=== PATIENT | female | born 1985 | race Caucasian/White ===

== ENCOUNTER → 2018-12-17 | Emergency (ER) | payer OTHER ==
[~2018-12-17] VITALS: Ht 162.6 cm; Wt 72.0 kg
[~2018-12-17] MED LIST: TRAM50TA2 PO
[2018-12-17 16:46] VITALS: BP 137/96
== END | disposition home or self-care (01) ==
LOC: ER 16:39
DX: M79.672 Pain in left foot (principal); Z88.5 Allergy status to narcotic agent; Z88.8 Allergy status to other drugs, medicaments and biological substances; Z79.899 Other long term (current) drug therapy
CPT/HCPCS: 73630; 99283

== ENCOUNTER 2019-01-10 11:10 | Outpatient (CLI) | payer OTHER | END 2019-01-10 23:59 | disposition home or self-care (01) | LOC: RAD 11:10 | PROVIDERS: ATTEND Registered Nurse | DX: M21.6X2 Other acquired deformities of left foot (principal); R60.0 Localized edema | CPT/HCPCS: 73721 ==

== ENCOUNTER 2019-03-25 08:54 | Day surgery (SDC) | payer OTHER ==
[2019-03-21 14:00] LABS: BASOPHILS % (AUTO) 0.6 % (0-1); EOSINOPHILS # (AUTO) 0.1 X10'3 (0-0.9); EOSINOPHILS % (AUTO) 1.1 % (0-6); LYMPHOCYTES # (AUTO) 1.7 X10'3 (1.1-4.8); LYMPHOCYTES % (AUTO) 22.6 % (21-51); MEAN CORPUSCULAR HGB CONC 34.3 g/dL (33.0-36.5); MEAN CORPUSCULAR VOLUME 84.5 FL (78-98); MEAN PLATELET VOLUME 9.2 FL (7.4-10.4); MONOCYTES # (AUTO) 0.7 X10'3 (0-0.9); NEUTROPHILS # (AUTO) 5.1 X10'3 (1.8-7.7); NEUTROPHILS % (AUTO) 66.7 % (42-75); PRE OP HEMATOCRIT 40.6 % (35.0-45.0); PRE OP HEMOGLOBIN 13.9 g/dL (12.0-16.0); PRE OP PLATELET COUNT 254 X10'3 (140-440); RED BLOOD COUNT 4.81 X10'6 (4.20-5.60)
[2019-03-21 14:14] LABS: ALBUMIN 3.7 G/DL (3.4-5.0); ALKALINE PHOSPHATASE 80 IU/L (46-116); BLOOD UREA NITROGEN 11 MG/DL (7-18); BUN/CREATININE RATIO 17.2 (6.6-38.0); CHLORIDE 102 MMOL/L (99-107); CREATININE 0.64 MG/DL (0.40-0.90); PRE OP ALT 38 U/L (30-65); PRE OP ANION GAP 7 (8-16); PRE OP BILIRUB, TOTAL 0.3 MG/DL (0.0-1.0); PRE OP SODIUM 138 MMOL/L (135-145); TOTAL CARBON DIOXIDE 28.9 MMOL/L (24-32); TOTAL PROTEIN 7.4 G/DL (6.4-8.2); eGFR > 90 ML/MIN
[2019-03-21 14:15] LABS: PRE OP GLUCOSE 90 MG/DL (70-104); PRE OP POTASSIUM 3.9 MMOL/L (3.4-5.1)
[2019-03-21 14:25] LABS: PRE OP AST 23 U/L (10-37)
[~2019-03-25] VITALS: Ht 162.6 cm; Wt 72.0 kg
[2019-03-25] VITALS (7 sets, daily range): BP systolic 100–136; BP diastolic 56–88
[~2019-03-25 08:54] MED LIST changes: +IBUP200C5 PO; +MULT-1074 PO; -TRAM50TA2 PO
[2019-03-25] MEDS ORDERED: bacitracin 15gm ointment TP ONE ×2 (09:52→09:53)
[2019-03-25] MEDS ORDERED: BUPIVAcaine/PF 2.5 mg/ml (0.25%) 30ml vial ONE (09:53)
[2019-03-25] MEDS ORDERED: sevoflurane 250ml liquid IH ONE (10:34)
[2019-03-25] MEDS ORDERED: dexamethasone sod phosphate 10mg/ml inj ONE (10:34)
[2019-03-25] MEDS ORDERED: fentaNYL/PF 50MCG/1 ML 2ML syringe ONE (10:35)
[2019-03-25] MEDS ORDERED: midazolam 2 mg/2 ml injection ONE (10:35)
[2019-03-25] MEDS ORDERED: propofol inj 20 ML IV ONE (10:51)
[2019-03-25] MEDS ORDERED: LIDOcaine 2% (20mg/ml) 5ml vial ONE (10:51)
[2019-03-25] MEDS ORDERED: ondansetron/PF 4mg/2ml inj ONE (10:51)
[2019-03-25] MEDS ORDERED: ketorolac trometh. 30mg/ml inj. ONE (10:52)
[2019-03-25] MEDS ORDERED: ringers solution, lacted 1,000 ML IV SCH ×2 (11:07→11:30)
[2019-03-25] MEDS ORDERED: ondansetron/PF 4mg/2ml inj IV PRN (11:10)
[2019-03-25] MEDS ORDERED: morphine 4 MG/ML inj SYRINge IV PRN ×2 (11:10)
[2019-03-25] MEDS ORDERED: meperidine/PF 25mg/ml syringe IV PRN ×3 (11:10)
[2019-03-25] MEDS ORDERED: proCHLORperazine 10 MG/2 ml inj IV PRN (11:10)
[2019-03-25] MEDS ORDERED: famotidine 20mg tablet PO ONE (11:30)
[2019-03-25] MEDS ORDERED: cefazolin/dext.iso 2gm/100 ML IV ONE (11:30)
--- NOTE | 2019-03-25 11:35 | NUR ---
Received from OR via , accompanied by Anesthesiologist DR BYRD and report given by Anesthesiolgist. AWAKENS TO VOICE. VITALS STABLE. DRESSING DI. MALI PAIN. TOES WARM AND PINK.
--- NOTE | 2019-03-25 12:45 | NUR ---
AWAKE AND ORIENTED. VITALS STABLE. DRESSING DI. STATES PAIN IMPROVING. SURGICAL BOOT ON LLE. HOME WITH HER MOM AT THIS TIME.
== END 2019-03-25 12:45 | disposition home or self-care (01) ==
LOC: PAS 08:54
PROVIDERS: ATTEND Podiatrist Foot & Ankle Surgery
DX: M25.872 Other specified joint disorders, left ankle and foot (principal); D64.9 Anemia, unspecified; Z79.82 Long term (current) use of aspirin; Z79.899 Other long term (current) drug therapy; Z88.8 Allergy status to other drugs, medicaments and biological substances
CPT/HCPCS: 28315; 36415; 80053; 85025; A6223; J1100; J1885; J2001; J2175; J2250; J2405; J2704; J3010; J3490; A4215; A4618; A6449; A7000; J7120

== ENCOUNTER 2019-10-27 10:44 | Outpatient (CLI) | payer OTHER ==
[2019-10-27 11:45] LABS: CLARITY,URINE CLEAR (Clear); COLOR,URINE YELLOW (Yellow); GLUCOSE, URINE NEGATIVE (Neg); KETONES,URINE NEGATIVE (Neg); LEUKOCYTE ESTERASE ,URINE NEGATIVE (Neg); NITRITES, URINE NEGATIVE (Neg); OCCULT BLOOD,URINE NEGATIVE (Neg); PROTEIN,URINE NEGATIVE (Neg); UROBILINOGEN,URINE 0.2 E.U/dL (0.2-1.0)
[2019-10-27 11:46] LABS: BASOPHILS # (AUTO) 0.1 X10'3 (0-0.2); BASOPHILS % (AUTO) 1.6 % (0-1); EOSINOPHILS # (AUTO) 0.1 X10'3 (0-0.9); EOSINOPHILS % (AUTO) 1.4 % (0-6); HEMATOCRIT 41.8 % (35.0-45.0); HEMOGLOBIN 14.2 g/dl (12.0-16.0); LYMPHOCYTES # (AUTO) 1.4 X10'3 (1.1-4.8); LYMPHOCYTES % (AUTO) 29.2 % (21-51); MEAN CORPUSCULAR VOLUME 85.1 FL (78-98); MEAN PLATELET VOLUME 9.2 FL (7.4-10.4); MONOCYTES # (AUTO) 0.4 X10'3 (0-0.9); MONOCYTES % (AUTO) 7.3 % (2-12); NEUTROPHILS % (AUTO) 60.5 % (42-75); PLATELET COUNT 245 X10'3 (140-440); RED BLOOD COUNT 4.91 X10'6 (4.20-5.60); RED CELL DISTRIBUTION WIDTH 13.7 % (11.5-14.5); WHITE BLOOD COUNT 4.9 X10'3 (4.5-11.0)
[2019-10-27 11:46] LABS: UA COLLECTION TYPE CLN CATCH MIDSTREAM
[2019-10-27 12:13] LABS: ALANINE AMINOTRANSFERASE 51 U/L (12-78); ALBUMIN 3.9 G/DL (3.4-5.0); ALBUMIN/GLOBULIN RATIO 1.1 (1.1-1.5); ALKALINE PHOSPHATASE 88 IU/L (46-116); ANION GAP 4 (8-16); ASPARTATE AMINO TRANSFERASE 32 U/L (10-37); BILIRUBIN,TOTAL 0.3 MG/DL (0.1-1.0); BLOOD UREA NITROGEN 8 MG/DL (7-18); BUN/CREATININE RATIO 11.9 (6.6-38.0); CALCIUM 8.7 MG/DL (8.5-10.1); CHLORIDE 106 MMOL/L (99-107); CHOL/HDL RATIO 5.1 (0.00-4.99); CHOLESTEROL 273 MG/DL (0-200); CREATININE 0.67 MG/DL (0.40-0.90); GLUCOSE 86 MG/DL (70-104); HDL CHOLESTEROL 54 MG/DL (35-60); LDL CHOLESTEROL 103 MG/DL (50-100); POTASSIUM 4.1 MMOL/L (3.5-5.1); SODIUM 140 MMOL/L (135-145); TOTAL CARBON DIOXIDE 29.6 MMOL/L (24-32); TOTAL PROTEIN 7.6 G/DL (6.4-8.2); TRIGLYCERIDES 264 MG/DL (20-135); eGFR > 90 ML/MIN
[2019-10-27 12:18] LABS: % IRON SATURATION 16 % (11-46); IRON 56 UG/DL (49-151); TOTAL IRON BINDING CAPACITY 358 UG/DL (259-388)
[2019-10-27 12:19] LABS: FERRITIN 24 NG/ML (8-252)
== END 2019-10-27 23:59 | disposition home or self-care (01) ==
LOC: LAB 10:44
PROVIDERS: ATTEND Family Medicine
DX: E78.00 Pure hypercholesterolemia, unspecified (principal); E03.9 Hypothyroidism, unspecified
CPT/HCPCS: 36415; 80053; 80061; 81003; 82728; 83540; 83550; 84439; 84443; 85025

== ENCOUNTER 2020-07-09 17:38 | Emergency (ER) | payer BC, OTHER ==
[~2020-07-09] VITALS: Ht 162.6 cm; Wt 70.0 kg
[2020-07-09 17:53] VITALS: BP 132/85
== END 2020-07-09 18:21 | disposition home or self-care (01) ==
LOC: EEVIPCON 17:39 → ER 17:39
DX: S60.222A Contusion of left hand, initial encounter (principal); Z88.5 Allergy status to narcotic agent; Z88.6 Allergy status to analgesic agent; Z79.899 Other long term (current) drug therapy; W22.8XXA Striking against or struck by other objects, initial encounter; Y93.89 Activity, other specified; Y92.89 Other specified places as the place of occurrence of the external cause; Y99.8 Other external cause status
CPT/HCPCS: 73130; 99283

== ENCOUNTER 2020-11-23 08:22 | Outpatient (CLI) | payer BC ==
[2020-11-23 09:01] LABS: CLARITY,URINE CLEAR (Clear); COLOR,URINE STRAW (Yellow); GLUCOSE, URINE NEGATIVE (Neg); KETONES,URINE NEGATIVE (Neg); LEUKOCYTE ESTERASE ,URINE NEGATIVE (Neg); NITRITES, URINE NEGATIVE (Neg); OCCULT BLOOD,URINE NEGATIVE (Neg); PROTEIN,URINE NEGATIVE (Neg); UROBILINOGEN,URINE 0.2 E.U/dL (0.2-1.0)
[2020-11-23 09:03] LABS: UA COLLECTION TYPE CLN CATCH MIDSTREAM
[2020-11-23 09:11] LABS: BASOPHILS % (AUTO) 0.8 % (0-1); EOSINOPHILS # (AUTO) 0.1 X10'3 (0-0.9); EOSINOPHILS % (AUTO) 1.2 % (0-6); HEMATOCRIT 40.1 % (35.0-45.0); HEMOGLOBIN 13.5 g/dl (12.0-16.0); LYMPHOCYTES # (AUTO) 1.1 X10'3 (1.1-4.8); LYMPHOCYTES % (AUTO) 23.9 % (21-51); MEAN CORPUSCULAR HEMOGLOBIN 29.5 PG (27.0-31.0); MEAN CORPUSCULAR HGB CONC 33.7 g/dL (33.0-36.5); MEAN CORPUSCULAR VOLUME 87.5 FL (78-98); MONOCYTES # (AUTO) 0.4 X10'3 (0-0.9); MONOCYTES % (AUTO) 7.5 % (2-12); NEUTROPHILS # (AUTO) 3.2 X10'3 (1.8-7.7); NEUTROPHILS % (AUTO) 66.6 % (42-75); PLATELET COUNT 265 X10'3 (140-440); RED BLOOD COUNT 4.59 X10'6 (4.20-5.60); RED CELL DISTRIBUTION WIDTH 13.2 % (11.5-14.5); WHITE BLOOD COUNT 4.8 X10'3 (4.5-11.0)
[2020-11-23 09:30] LABS: % IRON SATURATION 22 % (11-46); ALANINE AMINOTRANSFERASE 29 U/L (12-78); ALBUMIN 3.4 G/DL (3.4-5.0); ALBUMIN/GLOBULIN RATIO 0.9 (1.1-1.5); ALKALINE PHOSPHATASE 72 IU/L (46-116); ANION GAP 9 (8-16); ASPARTATE AMINO TRANSFERASE 16 U/L (10-37); BILIRUBIN,TOTAL 0.3 MG/DL (0.1-1.0); BLOOD UREA NITROGEN 14 MG/DL (7-18); CALCIUM 8.8 MG/DL (8.5-10.1); CHLORIDE 105 MMOL/L (99-107); CHOL/HDL RATIO 3.1 (0.00-4.99); CHOLESTEROL 204 MG/DL (0-200); HDL CHOLESTEROL 66 MG/DL (35-60); IRON 82 UG/DL (49-151); LDL CHOLESTEROL 94 MG/DL (50-100); POTASSIUM 3.7 MMOL/L (3.5-5.1); SODIUM 142 MMOL/L (135-145); TOTAL CARBON DIOXIDE 28.3 MMOL/L (24-32); TOTAL IRON BINDING CAPACITY 380 UG/DL (259-388); TOTAL PROTEIN 7.3 G/DL (6.4-8.2); TRIGLYCERIDES 127 MG/DL (20-135)
[2020-11-23 09:33] LABS: BUN/CREATININE RATIO 19.2 (6.6-38.0); CREATININE 0.73 MG/DL (0.40-0.90); GLUCOSE 81 MG/DL (70-104); eGFR > 90 ML/MIN
== END 2020-11-23 23:59 | disposition home or self-care (01) ==
LOC: LAB 08:22
PROVIDERS: ATTEND Family Medicine
DX: E78.00 Pure hypercholesterolemia, unspecified (principal); E03.9 Hypothyroidism, unspecified; R53.83 Other fatigue; D64.9 Anemia, unspecified; N30.90 Cystitis, unspecified without hematuria
CPT/HCPCS: 36415; 80053; 80061; 81003; 82607; 82746; 83540; 83550; 84439; 84443; 85025

== ENCOUNTER → 2021-02-18 | Outpatient (CLI) | payer BC | END | disposition home or self-care (01) | LOC: LAB 10:08 | PROVIDERS: ATTEND Family Medicine | DX: E07.9 Disorder of thyroid, unspecified (principal) | CPT/HCPCS: 36415; 84439; 84443 ==

== ENCOUNTER 2021-11-18 08:54 | Outpatient (CLI) | payer BC ==
[2021-11-18 09:47] LABS: CHOL/HDL RATIO 3.8 (0.00-4.99); CHOLESTEROL 212 MG/DL (0-200); HDL CHOLESTEROL 56 MG/DL (35-60); LDL CHOLESTEROL 79 MG/DL (50-100); TRIGLYCERIDES 252 MG/DL (20-135)
== END 2021-11-18 23:59 | disposition home or self-care (01) ==
LOC: LAB 08:54
PROVIDERS: ATTEND Family Medicine
DX: E78.00 Pure hypercholesterolemia, unspecified (principal)
CPT/HCPCS: 36415; 80061

== ENCOUNTER 2021-12-04 00:06 | Emergency (ER) | payer BC ==
[~2021-12-04] VITALS: Ht 162.6 cm; Wt 70.5 kg
[2021-12-04 00:09] VITALS: BP 144/89
== END 2021-12-04 01:16 | disposition home or self-care (01) ==
LOC: ER 00:06
DX: M25.531 Pain in right wrist (principal); Z88.6 Allergy status to analgesic agent; Z88.8 Allergy status to other drugs, medicaments and biological substances; Z79.899 Other long term (current) drug therapy
CPT/HCPCS: 99281; 99282

== ENCOUNTER 2022-01-08 08:24 | Outpatient (CLI) | payer BC | END 2022-01-08 23:59 | disposition home or self-care (01) | LOC: RAD 08:24 | PROVIDERS: ATTEND Physician Assistant | DX: S63.591A Other specified sprain of right wrist, initial encounter (principal); M67.431 Ganglion, right wrist; X58.XXXA Exposure to other specified factors, initial encounter; Y93.89 Activity, other specified; Y92.89 Other specified places as the place of occurrence of the external cause; Y99.8 Other external cause status | CPT/HCPCS: 73221 ==

== ENCOUNTER 2022-02-18 10:01 | Outpatient (CLI) | payer BC ==
[2022-02-18 10:35] LABS: CLARITY,URINE CLEAR (Clear); COLOR,URINE YELLOW (Yellow); GLUCOSE, URINE NEGATIVE (Neg); KETONES,URINE NEGATIVE (Neg); LEUKOCYTE ESTERASE ,URINE NEGATIVE (Neg); NITRITES, URINE NEGATIVE (Neg); OCCULT BLOOD,URINE SMALL (Neg); PROTEIN,URINE NEGATIVE (Neg); UROBILINOGEN,URINE 0.2 E.U/dL (0.2-1.0)
[2022-02-18 10:39] LABS: UA COLLECTION TYPE CLN CATCH MIDSTREAM
[2022-02-18 10:42] LABS: BASOPHILS % (AUTO) 0.8 % (0-1); EOSINOPHILS # (AUTO) 0.1 X10'3 (0-0.9); EOSINOPHILS % (AUTO) 1.6 % (0-6); HEMATOCRIT 39.4 % (35.0-45.0); HEMOGLOBIN 13.7 g/dl (12.0-16.0); LYMPHOCYTES # (AUTO) 1.3 X10'3 (1.1-4.8); LYMPHOCYTES % (AUTO) 28.7 % (21-51); MEAN CORPUSCULAR HEMOGLOBIN 29.9 PG (27.0-31.0); MEAN CORPUSCULAR HGB CONC 34.6 g/dL (33.0-36.5); MEAN CORPUSCULAR VOLUME 86.4 FL (78-98); MEAN PLATELET VOLUME 8.8 FL (7.4-10.4); MONOCYTES # (AUTO) 0.3 X10'3 (0-0.9); MONOCYTES % (AUTO) 7.2 % (2-12); NEUTROPHILS # (AUTO) 2.9 X10'3 (1.8-7.7); NEUTROPHILS % (AUTO) 61.7 % (42-75); PLATELET COUNT 246 X10'3 (140-440); RED BLOOD COUNT 4.56 X10'6 (4.20-5.60); RED CELL DISTRIBUTION WIDTH 13.1 % (11.5-14.5); WHITE BLOOD COUNT 4.6 X10'3 (4.5-11.0)
[2022-02-18 10:50] LABS: AMORPHOUS URATES 1+; MUCUS STRANDS FEW /LPF (Neg)
[2022-02-18 10:52] LABS: WBC,URINE 0-4 /HPF (0-4)
[2022-02-18 10:53] LABS: SQUAMOUS EPITHELIAL CELL,UR FEW /LPF (FEW)
[2022-02-18 10:55] LABS: BACTERIA,URINE 1+ /HPF (Neg)
[2022-02-18 11:04] LABS: % IRON SATURATION 16 % (11-46); IRON 57 UG/DL (49-151); TOTAL IRON BINDING CAPACITY 363 UG/DL (259-388)
[2022-02-18 11:24] LABS: ALBUMIN 3.9 G/DL (3.4-5.0); CALCIUM 8.9 MG/DL (8.5-10.1); GLUCOSE 81 MG/DL (70-104)
[2022-02-18 12:32] LABS: ALANINE AMINOTRANSFERASE 22 U/L (12-78); ALBUMIN/GLOBULIN RATIO 1.1 (1.1-1.5); ANION GAP 10 (8-16); ASPARTATE AMINO TRANSFERASE 20 U/L (10-37); BILIRUBIN,TOTAL 0.4 MG/DL (0.1-1.0); BLOOD UREA NITROGEN 9 MG/DL (7-18); BUN/CREATININE RATIO 11.4 (6.6-38.0); CHLORIDE 106 MMOL/L (99-107); CHOL/HDL RATIO 3.3 (0.00-4.99); CHOLESTEROL 180 MG/DL (0-200); CREATININE 0.79 MG/DL (0.40-0.90); HDL CHOLESTEROL 55 MG/DL (35-60); POTASSIUM 3.9 MMOL/L (3.5-5.1); SODIUM 142 MMOL/L (135-145); TOTAL CARBON DIOXIDE 25.6 MMOL/L (24-32); TOTAL PROTEIN 7.4 G/DL (6.4-8.2); TRIGLYCERIDES 229 MG/DL (20-135); eGFR 82 ML/MIN
[2022-02-18 13:42] LABS: ALKALINE PHOSPHATASE 64 IU/L (46-116); LDL CHOLESTEROL 62 MG/DL (50-100)
== END 2022-02-18 23:59 | disposition home or self-care (01) ==
LOC: LAB 10:01
PROVIDERS: ATTEND Family Medicine
DX: E78.00 Pure hypercholesterolemia, unspecified (principal)
CPT/HCPCS: 36415; 80053; 80061; 81001; 82607; 82746; 83540; 83550; 84439; 84443; 85025

== ENCOUNTER 2022-12-25 08:27 | Outpatient (CLI) | payer BC ==
[2022-12-25 09:17] LABS: CLARITY,URINE CLOUDY (Clear); COLOR,URINE YELLOW (Yellow); GLUCOSE, URINE NEGATIVE (Neg); KETONES,URINE NEGATIVE (Neg); LEUKOCYTE ESTERASE ,URINE NEGATIVE (Neg); NITRITES, URINE NEGATIVE (Neg); OCCULT BLOOD,URINE NEGATIVE (Neg); PH,URINE 8.5 (4.8-8.0); PROTEIN,URINE NEGATIVE (Neg); UROBILINOGEN,URINE 0.2 E.U/dL (0.2-1.0)
[2022-12-25 09:19] LABS: BASOPHILS % (AUTO) 0.5 % (0-1); EOSINOPHILS # (AUTO) 0.1 X10'3 (0-0.9); EOSINOPHILS % (AUTO) 1.6 % (0-6); HEMATOCRIT 40.2 % (35.0-45.0); HEMOGLOBIN 13.6 g/dl (12.0-16.0); LYMPHOCYTES # (AUTO) 1.4 X10'3 (1.1-4.8); LYMPHOCYTES % (AUTO) 19.1 % (21-51); MEAN CORPUSCULAR HEMOGLOBIN 29.2 PG (27.0-31.0); MEAN CORPUSCULAR HGB CONC 33.8 g/dL (33.0-36.5); MEAN CORPUSCULAR VOLUME 86.5 FL (78-98); MEAN PLATELET VOLUME 8.6 FL (7.4-10.4); MONOCYTES # (AUTO) 0.6 X10'3 (0-0.9); NEUTROPHILS # (AUTO) 5.1 X10'3 (1.8-7.7); NEUTROPHILS % (AUTO) 70.8 % (42-75); PLATELET COUNT 265 X10'3 (140-440); RED BLOOD COUNT 4.65 X10'6 (4.20-5.60); RED CELL DISTRIBUTION WIDTH 13.2 % (11.5-14.5); WHITE BLOOD COUNT 7.1 X10'3 (4.5-11.0)
[2022-12-25 09:25] LABS: UA COLLECTION TYPE CLN CATCH MIDSTREAM
[2022-12-25 09:27] LABS: AMORPHOUS PHOSPHATES 3+; BACTERIA,URINE NONE SEEN /HPF (Neg); RBC,URINE NONE SEEN /HPF (0-2); SQUAMOUS EPITHELIAL CELL,UR NONE SEEN /LPF (FEW); WBC,URINE NONE SEEN /HPF (0-4)
[2022-12-25 09:29] LABS: ALANINE AMINOTRANSFERASE 24 U/L (12-78); ALBUMIN 3.7 G/DL (3.4-5.0); ALKALINE PHOSPHATASE 70 IU/L (46-116); ANION GAP 6 (8-16); ASPARTATE AMINO TRANSFERASE 19 U/L (10-37); BILIRUBIN,TOTAL 0.4 MG/DL (0.1-1.0); BLOOD UREA NITROGEN 10 MG/DL (7-18); BUN/CREATININE RATIO 13.9 (10.0-20.0); CALCIUM 8.7 MG/DL (8.5-10.1); CHLORIDE 105 MMOL/L (99-107); CHOL/HDL RATIO 3.4 (0.00-4.99); CHOLESTEROL 209 MG/DL (0-200); CREATININE 0.72 MG/DL (0.40-0.90); GLUCOSE 91 MG/DL (70-104); HDL CHOLESTEROL 61 MG/DL (35-60); LDL CHOLESTEROL 92 MG/DL (50-100); SODIUM 139 MMOL/L (135-145); TOTAL CARBON DIOXIDE 28.1 MMOL/L (24-32); TOTAL PROTEIN 7.3 G/DL (6.4-8.2); TRIGLYCERIDES 162 MG/DL (20-135); eGFR > 90 ML/MIN
[2022-12-25 09:58] LABS: HEMOGLOBIN A1C 5.1 % (4.5-6.2)
== END 2022-12-25 23:59 | disposition home or self-care (01) ==
LOC: LAB 08:27
PROVIDERS: ATTEND Nurse Practitioner
DX: Z00.00 Encounter for general adult medical examination without abnormal findings (principal)
CPT/HCPCS: 36415; 80053; 80061; 81001; 82306; 82607; 82746; 83036; 85025

== ENCOUNTER 2024-06-16 21:26 | Emergency (ER) | payer BC ==
[~2024-06-16] VITALS: Ht 162.6 cm; Wt 70.5 kg
[2024-06-16 21:43] VITALS: BP 129/87; PULSE 94; RESP 16; O2SAT 98
[2024-06-16 22:27] VITALS: TEMP 98
[2024-06-16] MEDS ORDERED: CYCL-1 PO (22:29)
== END 2024-06-16 22:35 | disposition home or self-care (01) ==
LOC: ER 21:27
DX: M54.50 Low back pain, unspecified (principal); Z88.5 Allergy status to narcotic agent; Z88.6 Allergy status to analgesic agent
CPT/HCPCS: 99283